=== PATIENT | male | born 1940 | race American Indian/Alaskan Native ===

== ENCOUNTER 2017-05-03 09:11 | Outpatient (CLI) | payer MEDICARE ==
[2017-05-03 09:52] LABS: Blood Urea Nitrogen 24 mg/dL (9-20)
--- NOTE | 2017-05-03 14:55 | Cat Scan Report ---
CT CHEST, ABDOMEN AND PELVIS WITH CONTRAST: 05/03/17 09:11:00 CLINICAL: Colon cancer restaging. COMPARISON: 05/16/16 TECHNIQUE: Volumetric acquisition and 1.25 millimeter scan reconstructions after the uneventful intravenous injection of 100 cc of Omnipaque 300. Consent was obtained prior to the administration of the contrast. Oral contrast was also given. FINDINGS: Chest: The lungs are clear. No pulmonary nodule or mass. Normal aorta, heart and pulmonary arteries. Normal esophagus. No mediastinal or hilar lymphadenopathy.No axillary or supraclavicular lymphadenopathy. Stable nodular right thyroid enlargement with substernal extension. Abdomen: Stable liver with a right hepatic benign cyst measuring approximately 1 cm. 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 No liver mass. Normal stomach, duodenum and spleen. Fatty infiltration of the pancreas. Stable 2.2 cm x 1.8 cm right adrenal nodule. The left adrenal gland is normal. Normal kidneys with nondilated renal collecting systems and ureters. Normal aorta and inferior vena cava. No intraperitoneal or retroperitoneal lymphadenopathy.No ascites.Small bowel is normal. Normal ascending, transverse and descending colon. Normal ascending colon anastomosis. No appendix. Pelvis: Normal urinary bladder and rectum.No prostate identified. No pelvic lymphadenopathy, mass or fluid. The sigmoid colon is normal. Bone windows demonstrate no suspicious bone lesion. IMPRESSION:1. No evidence of disease recurrence or metastasis. 2. 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 3. Stable benign right adrenal adenoma.
== END 2017-05-03 09:12 | disposition home or self-care (01) ==
LOC: SPVIMAG 09:11 → CT 09:11
PROVIDERS: ATTEND Internal Medicine Hematology & Oncology
DX: C18.3 Malignant neoplasm of hepatic flexure (principal); D35.01 Benign neoplasm of right adrenal gland; D68.69 Other thrombophilia; E04.9 Nontoxic goiter, unspecified; K76.89 Other specified diseases of liver; K86.89 Other specified diseases of pancreas; I81 Portal vein thrombosis
CPT/HCPCS: 36415; 71260; 74177; 82565; 84520; Q9967

== ENCOUNTER 2017-11-29 11:11 | Outpatient (CLI) | payer MEDICARE ==
[2017-11-29 11:55] LABS: Blood Urea Nitrogen 23 mg/dL (9-20)
--- NOTE | 2017-11-29 16:46 | Cat Scan Report ---
FINAL REPORT EXAM: CT ABDOMEN PELVIS W CON HISTORY: COLON CANCER TECHNIQUE: CT examination of the ABDOMEN after IV contrast CT examination of the PELVIS after IV contrast PRIORS: None. FINDINGS: Slight linear scar versus atelectasis in both lung bases. Degenerative change regional skeleton. No evidence of acute fracture or focal osseous lesion. A smoothly marginated hypodense left hepatic lobe lesion is nonspecific and statistically most likely reflect a cyst or hemangioma. It measures 7 mm in the medial segment of the left hepatic lobe. It does not enhance with IV contrast. Less likely possibility includes small metastatic focus given history of colon cancer. Normal-appearing gallbladder, left adrenal, pancreas, and spleen. Normal caliber abdominal aorta with severe calcified atherosclerotic plaque. Normal caliber IVC. Prominent calcified plaque in the proximal common iliac arteries bilaterally may be associated with stenosis. Nonspecific solid-appearing nodule in the right adrenal gland is [address] Average CT density 35 and minimum density-1. Normal-appearing kidneys and visible ureters. Small fat containing umbilical hernia also containing a very short segment of normal-appearing small intestine. Very small fat containing right inguinal hernia. Small fat containing midline ventral hernia just above the umbilical hernia. No retroperitoneal adenopathy or definite mesenteric mass. Normal-appearing stomach and duodenum. No small bowel distention in the abdomen and pelvis. No pelvic free fluid. Normal-appearing urinary bladder. No gross ascites or free air. Normal-appearing terminal ileum. Appendix not visible. No pericecal inflammation. Prominent stool from cecum to rectum suggestive constipation with slight prominence of colon caliber. IMPRESSION: Small umbilical hernia contains a short segment of normal-appearing small intestine Small midline fat containing supraumbilical hernia and right inguinal hernia 7 mm hypodense nonenhancing nodule in the left hepatic lobe is statistically most likely a cyst or hemangioma. Less likely possibility includes small metastatic focus given history of colon cancer Nonspecific solid-appearing 24 mm right adrenal nodule. Consider followup thin-section adrenal CT without IV contrast to further characterize Prominent stool and caliber from cecum to rectum suggestive of constipation Prominent calcified plaque in the common iliac arteries proximal aspect may be associated with stenosis Slight linear scar versus atelectasis both lung bases
--- NOTE | 2017-11-29 16:58 | Cat Scan Report ---
FINAL REPORT EXAM: CT CHEST W CON HISTORY: COLON CANCER TECHNIQUE: CT examination of the chest after IV contrast PRIORS: AP CT 11/29/2017 FINDINGS: Large heterogeneously enhancing mass in the lower pole of the right thyroid lobe. It extends into the middle mediastinum along the right side of the trachea. There is left tracheal deviation. Mass margins are smooth. Lesion transverse dimension is 4.7 x 4.5 cm. Sagittal dimension 7.7 cm. 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 Normal cardiac size without pericardial effusion. Intact normal caliber thoracic aorta. Normal-appearing esophagus. No hilar mass. Nonspecific nonenhancing 7 mm nodule in the medial segment of the left hepatic lobe. Again noted is a nonspecific right adrenal nodule measuring 24 mm. Slight linear scar versus atelectasis in both lung bases. No pneumothorax, pleural effusion, or focal pulmonary consolidation. Nonspecific nodular ground-glass opacity measures 7 mm in the lateral aspect of the left upper lobe, series 2, image 58. IMPRESSION: Nodular ground-glass opacity is 7 mm in the lateral aspect of the left upper lobe. This may be scarring, infectious, inflammatory, or neoplastic 7 mm nonenhancing hypodense nodule in the medial segment left hepatic lobe is statistically most likely a cyst or hemangioma. Differential includes less likely possibility of metastatic focus given history of colon cancer. 24 mm solid-appearing right adrenal nodule is nonspecific. Consider followup thin-section adrenal CT without IV contrast to further characterize Large heterogeneous soft tissue mass in the inferior right thyroid extending into the upper mediastinum. 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
== END 2017-11-29 11:12 | disposition home or self-care (01) ==
LOC: CT 11:11
PROVIDERS: ATTEND Internal Medicine Hematology & Oncology
DX: C18.3 Malignant neoplasm of hepatic flexure (principal); D68.69 Other thrombophilia; K76.89 Other specified diseases of liver; K43.9 Ventral hernia without obstruction or gangrene; K42.9 Umbilical hernia without obstruction or gangrene; E27.8 Other specified disorders of adrenal gland
CPT/HCPCS: 36415; 71260; 74177; 82565; 84520; Q9967

== ENCOUNTER 2020-08-17 12:42 | Outpatient (CLI) | payer MEDICARE ==
[2020-08-17 13:53] LABS: Blood Urea Nitrogen 22 mg/dL (9-20)
--- NOTE | 2020-08-17 15:20 | Cat Scan Report ---
CT CHEST WITH CONTRAST INDICATION / CLINICAL INFORMATION: Carcinoma TECHNIQUE: Axial CT images were obtained through the chest after 100 cc Omnipaque 300 milligrams percent IV cont rast. All CT scans at this location are performed using CT dose reduction for ALARA by means of autom ated exposure control. COMPARISON: None available. FINDINGS: THORACIC INLET: A large intrathoracic partially calcified right thyroid goiter is present measuring 4 .9 x 4.5 cm extending over distance of 6.76 cm. Tracheal deviation to the left is noted HEART: No significant abnormality. Dense coronary calcifications are present. THORACIC AORTA: No significant abnormality. MEDIASTINUM and ALBERTO: No significant abnormality. LUNGS: No acute air space or interstitial disease. PLEURA: No significant pleural effusion. No pneumothorax. ADDITIONAL FINDINGS: None. SKELETAL SYSTEM: Degenerative changes thoracic spine noted IMPRESSION: 1. A large intrathoracic thyroid goiter on the right Signer Name: Alvaro Chacon MD Signed: 08/17/2020 3:16 PM Workstation Name: [id number]
--- NOTE | 2020-08-17 22:48 | Cat Scan Report ---
CT abdomen pelvis w con INDICATION: Hepatic flexure neoplasm.. COMPARISON: 11/29/2017 TECHNIQUE: Abdominal CT exam performed. All CT scans at this location are performed using CT dose red uction for ALARA by means of automated exposure control. FINDINGS: CT ABDOMEN and PELVIS: Lung Bases: No significant abnormality. Liver: A few hypoattenuating subcentimeter hepatic lesions are unchanged and consistent with benign e tiology such as cysts. Biliary: No significant abnormality. Spleen: No significant abnormality. Pancreas: No significant abnormality. Adrenals: 2.4 cm right adrenal nodule is unchanged from 2018. Kidneys: Subcentimeter right anterior midpole renal lesion is unchanged and most consistent with a cy st. Lymphatics: No lymphadenopathy. Vasculature: No significant abnormality. Bowel: No significant abnormality. Osseous Structures: No aggressive osseous lesion. Additional Findings: None IMPRESSION: 1. No evidence of recurrence or metastasis. Unchanged 2.4 cm right adrenal nodule. 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 Signer Name: Mark Tenorio MD Signed: 08/17/2020 10:43 PM Workstation Name: [id number]
== END 2020-08-17 12:43 | disposition home or self-care (01) ==
LOC: CT 12:42
PROVIDERS: ATTEND Internal Medicine Hematology & Oncology
DX: C18.3 Malignant neoplasm of hepatic flexure (principal); D68.69 Other thrombophilia; E27.9 Disorder of adrenal gland, unspecified; N28.9 Disorder of kidney and ureter, unspecified; J39.8 Other specified diseases of upper respiratory tract; E04.9 Nontoxic goiter, unspecified; I25.10 Atherosclerotic heart disease of native coronary artery without angina pectoris; M47.814 Spondylosis without myelopathy or radiculopathy, thoracic region
CPT/HCPCS: 36415; 71260; 74177; 82565; 84520; Q9967